=== PATIENT | male | born 1985 | race Two or more races ===

== ENCOUNTER 2017-01-13 20:41 | Emergency (ER) | payer MEDICAID ==
[~2017-01-13] VITALS: Ht 177.8 cm; Wt 122.5 kg
[2017-01-13] MEDS ORDERED: CARVEDILOL 6.25 MG TABLET ONE (21:12)
[2017-01-13] MEDS ORDERED: LISINOPRIL (20MG) 20 MG TABLET PO SCH (21:30)
[2017-01-13] MEDS ORDERED: CARVEDILOL 6.25 MG TABLET PO ONE (21:30)
[2017-01-13] MEDS ORDERED: LISINOPRIL (20MG) 20 MG TABLET ONE (21:40)
[2017-01-13 21:43] VITALS: BP 171/135
--- NOTE | 2017-01-13 21:44 | NUR ---
PATIENT REFUSED TO TAKE LISINOPRIL 20MG TAB. EDUCATED PATIENT TO RISK AND BENEFITS, PATIENT STILL REFUSED AND SAID, HE "CANT WAIT TO GO HOME." DISCHARGE INSTRUCTIONS GIVEN. PATIENT VERBALIZED UNDERSTANDING. AMBULATORY WITH STEADY GAIT. PATIENT HAS EXIT CARE AND PRESCRIPTION.
== END 2017-01-13 21:44 | disposition home or self-care (01) ==
LOC: ER 20:46
DX: Z76.0 Encounter for issue of repeat prescription (principal); I11.0 Hypertensive heart disease with heart failure; I50.9 Heart failure, unspecified; F17.200 Nicotine dependence, unspecified, uncomplicated
CPT/HCPCS: A4606; Z7610

== ENCOUNTER 2017-02-26 11:14 | Emergency (ER) | payer MEDICAID, OTHER ==
[~2017-02-26] VITALS: Ht 177.8 cm; Wt 122.5 kg
[2017-02-26 11:20] VITALS: BP 157/118
[2017-02-26] MEDS ORDERED: CARV12.52 PO (12:34)
[2017-02-26] MEDS ORDERED: FURO40TA5 PO (12:34)
[2017-02-26] MEDS ORDERED: LISI-603 PO (12:34)
[2017-02-26] MEDS ORDERED: CLINDAMYCIN 900 MG/6 ML VIAL ONE (12:49)
[2017-02-26] MEDS ORDERED: CLINDAMYCIN 900 MG/6 ML VIAL IM ONE (13:00)
== END 2017-02-26 13:07 | disposition home or self-care (01) ==
LOC: ER 11:22
DX: L03.116 Cellulitis of left lower limb (principal); I11.0 Hypertensive heart disease with heart failure; I50.9 Heart failure, unspecified
CPT/HCPCS: 96372; 99283; A4606; A6403; J3490; Z7610

== ENCOUNTER 2017-03-25 12:53 | Emergency (ER) | payer OTHER ==
[~2017-03-25] VITALS: Ht 177.8 cm; Wt 117.9 kg
[~2017-03-25 12:53] MED LIST: CARV12.52 PO; FURO40TA5 PO; LISI-603 PO
--- NOTE | 2017-03-25 12:55 | NUR ---
SENT BY PCP FOR HBP . PCP GAVE BP MEDS PT DOESNT KNOW NAME OF MEDS PT TAKES COREG 12.5 MG PO BID, LSINOPRIL 20 MG PO QD LASIX. DENIES CP /SOB, NAD NOTED, VSS, RESP EVEN AND UNLABORED, 0/10 PAIN, PT PUT ON HOSPITAL GOWN AND MONITOR. WAITING FOR MD LANG
[2017-03-25 13:32] VITALS: BP 142/92
== END 2017-03-25 14:12 | disposition home or self-care (01) ==
LOC: ER 12:55
DX: I11.0 Hypertensive heart disease with heart failure (principal); I50.9 Heart failure, unspecified; F17.200 Nicotine dependence, unspecified, uncomplicated
CPT/HCPCS: 99283; A4606; Z7610

== ENCOUNTER 2017-11-16 11:34 | Inpatient (IN) | payer OTHER ==
[~2017-11-16] VITALS: Ht 177.8 cm; Wt 142.9 kg
--- NOTE | 2017-11-16 11:40 | NUR ---
PRESENTS TO ER CO LEFT LEG SWELLING, REDNESS, BURNING X 2 DAYS. PATIENT IS A/OX 4, BREATHING EVEN AND UNLABORED. NO SOB, NAD, VITALS STABLE. SAFETY AND COMFORT MEASURES IN PLACE. AWAITING MD ORDERS.
--- NOTE | 2017-11-16 11:59 | NUR ---
PAGED DR. LEIF REDDY
[2017-11-16] MEDS ORDERED: CLINDAMYCIN 900 MG in IV D5W 100 ML IV ONE (12:00)
[2017-11-16] MEDS ORDERED: ACETAMINOPHEN ES 500 MG TABLET PO ONE (12:00)
--- NOTE | 2017-11-16 12:00 | NUR ---
NEW IV STARTED ON RFA, 20G. BLOOD DRAWN AND SENT TO LAB.
[2017-11-16] MEDS ORDERED: PIPERACILLIN /TAZOBACTAM 3.375 G in IV D5W 50 ML IV STA (12:03)
[2017-11-16] MEDS ORDERED: ACETAMINOPHEN ES 500 MG TABLET ONE (12:08)
[2017-11-16 12:09] LABS: BASOPHILS # (AUTO) 0.1 /CMM (0.0-0.2); BASOPHILS % (AUTO) 0.5 % (0.0-2.0); EOSINOPHILS % (AUTO) 0.3 % (0.0-6.0); HEMATOCRIT 41 % (39-51); HEMOGLOBIN 13.9 g/dL (13.5-17.5); LYMPHOCYTES # (AUTO) 0.7 /CMM (0.8-4.8); LYMPHOCYTES % (AUTO) 6.4 % (20.0-44.0); MEAN CORPUSCULAR HEMOGLOBIN 27 PG (26.0-33.0); MEAN CORPUSCULAR HGB CONC 34 g/dl (31.0-36.0); MEAN CORPUSCULAR VOLUME 81 fL (80-96); MONOCYTES # (AUTO) 0.6 /CMM (0.1-1.30); MONOCYTES % (AUTO) 5.4 % (2.0-12.0); NEUTROPHILS % (AUTO) 87.4 % (43.0-81.0); PLATELET COUNT (AUTO) 198 /CMM (150-450); RDW COEFFICIENT OF VARIATION 19.4 (11.5-15.0); RED BLOOD CELL COUNT(AUTO) 5.06 MIL/uL (4.5-6.0); WHITE BLOOD COUNT (AUTO) 11.4 K/uL (4.3-11.0)
--- NOTE | 2017-11-16 12:17 | NUR ---
REQUESTED MED SURG BED FROM NURSE SUP
[2017-11-16 12:18] LABS: CALCIUM, SERUM 8.2 mg/dL (8.5-10.1); CREATININE 1.6 mg/dL (0.6-1.3); POTASSIUM 3.6 mmol/L (3.5-5.1)
[2017-11-16 12:24] LABS: ALBUMIN 1.8 g/dL (3.4-5.0); BILIRUBIN,TOTAL 2.1 mg/dL (0.2-1.0); TOTAL PROTEIN, SERUM 6.6 g/dL (6.4-8.2)
[2017-11-16] MEDS ORDERED: VANCOMYCIN 2 GM in IV D5W 500 ML IV ONE (12:30)
[2017-11-16] MEDS ORDERED: DEXTROSE 50% IV ONE (12:30)
[2017-11-16] MEDS ORDERED: VANCOMYCIN IV ONE (12:30)
[2017-11-16] MEDS ORDERED: WATER IV ONE (12:30)
[2017-11-16] MEDS ORDERED: VANCOMYCIN 1 GM in IV D5W 250 ML IV ONE (12:30)
--- NOTE | 2017-11-16 12:32 | NUR ---
PAGED DR. LEIF REDDY - SECOND ATTEMPT
--- NOTE | 2017-11-16 13:00 | NUR ---
PAGED DR. LEIF REDDY - THIRD ATTEMPT
--- NOTE | 2017-11-16 13:15 | NUR ---
Tommie calvert in ED - 11/16/17 at 1325 by JULI JERILYN TORRES PANEL - AP NUTHALAPATY SUPERVISOR PIPELINE
[2017-11-16] MEDS ORDERED: IV NS 0.9% 1,000 ML BAG IV STA (13:20)
--- NOTE | 2017-11-16 13:25 | NUR ---
PAGED DR. HEART SHE IS COVERING FOR LEIF REDDY
--- NOTE | 2017-11-16 13:56 | NUR ---
REPORT GIVEN TO VAZQUEZ CHAVEZ FOR ELENA UPON ADMISSION.
--- NOTE | 2017-11-16 14:08 | NUR ---
patient transported to [facility] via stretcher. rncesario to provide disha.
[2017-11-16 14:30] VITALS: BP 101/65
--- NOTE | 2017-11-16 14:30 | NUR ---
RECEIVED PATIENT FROM ER VIA GURNEY. PATIENT IS A/OX4, ABLE TO MAKE NEEDS KNOWN. AMBULATORY. O2SAT 100% ROOM AIR. VS WNL. NO ACUTE DISTRESS, NO SOB NOTED. DENIED PAIN AND DISCOMFORT AT THE MOMENT. EDEMA ON BILATERAL LOWER EXTREMITIES; LEFT LOWER EXTREMITY FROM BELOW THE KNEE TO THE ANKLE CELLULITIS NOTED. PER PATIENT, HE HAS NO WOUNDS OR BRUISES ON OTHER PART OF THE BODY. BODY CHECK DONE, SKIN INTACT. IV SITE ON RIGHT FOREARM GAUGE 20, INTACT AND PATENT. KEPT PATIENT SAFE AND COMFORTABLE. BED IN LOW/LOCKED POSITION, SIDERAILS UPX2, SEMIFOWLERS, CALL LIGHT IN REACH. WILL CONTINUE TO MONITOR ACCORDINGLY.
--- NOTE | 2017-11-16 15:00 | NUR ---
DR REDDY ON BEDSIDE TALKING TO PATIENT. PER DR REDDY, CONTINUE HOME MEDICATIONS.
[2017-11-16] MEDS: ENOXAPARIN SODIUM 40 MG/0.4 ML DISP.SYRIN SQ SCH (17:52)
--- NOTE | 2017-11-16 19:30 | NUR ---
RN CLOSING NOTES PATIENT IN STABLE CONDITION. ALL NEEDS ATTENDED AND PROVIDED. KEPT PATIENT SAFE AND COMFORTABLE. BED IN LOW/LOCKED POSITION, SIDERAILS UPX2, CALL LIGHT IN REACH. ENDORSED TO NIGHT RN FOR ELENA.
[2017-11-16 20:00] VITALS: BP 113/69
[2017-11-16] MEDS: CEFAZOLIN 1 GM in IV NS 0.9% 50 ML IV SCH (20:59)
--- NOTE | 2017-11-16 21:42 | NUR ---
INITIAL ECHO FINDING SHOWED EF 30-35%~ WITH MODERATE PULM. HTN. INFORMED ATTENDING RN (MAE) AND CHARGE NURSE (BRIANDA) OF RESULTS.
[2017-11-17] MEDS: CEFAZOLIN 1 GM in IV NS 0.9% 50 ML IV SCH ×3 (05:13→21:05)
[2017-11-17 06:39] LABS: CALCIUM, SERUM 8.5 mg/dL (8.5-10.1); CREATININE 1.5 mg/dL (0.6-1.3); POTASSIUM 3.5 mmol/L (3.5-5.1)
--- NOTE | 2017-11-17 06:40 | NUR ---
MS RN NOTES AWAKE & RESPONSIVE. NOT IN ANY DISTRESS. NO SOB NOTED. DENIES ANY PAIN OR DISCOMFORT AT THIS TIME. WITH IV-HL PATENT & INTACT. MONITORED ACCORDINGLY. CALL LIGHT WITHIN REACH. BED IN LOWEST POSITION. SR UP X 2 FOR SAFETY. WILL ENDORSE TO NEXT SHIFT.
[2017-11-17 07:46] LABS: BASOPHILS % (AUTO) 0.6 % (0.0-2.0); EOSINOPHILS % (AUTO) 0.6 % (0.0-6.0); HEMATOCRIT 41 % (39-51); HEMOGLOBIN 14.2 g/dL (13.5-17.5); LYMPHOCYTES % (AUTO) 11.5 % (20.0-44.0); MEAN CORPUSCULAR HEMOGLOBIN 28 PG (26.0-33.0); MEAN CORPUSCULAR HGB CONC 35 g/dl (31.0-36.0); MEAN CORPUSCULAR VOLUME 82 fL (80-96); MONOCYTES # (AUTO) 0.9 /CMM (0.1-1.30); MONOCYTES % (AUTO) 10.7 % (2.0-12.0); NEUTROPHILS # (AUTO) 6.4 /CMM (1.8-8.9); NEUTROPHILS % (AUTO) 76.6 % (43.0-81.0); PLATELET COUNT (AUTO) 221 /CMM (150-450); RDW COEFFICIENT OF VARIATION 19.2 (11.5-15.0); RED BLOOD CELL COUNT(AUTO) 5.04 MIL/uL (4.5-6.0); WHITE BLOOD COUNT (AUTO) 8.3 K/uL (4.3-11.0)
--- NOTE | 2017-11-17 07:47 | NUR ---
MS RN OPENING NOTES RECEIVED PT FROM NIGHTSHIFT NURSE IN STABLE CONDITION. PT IS A/O X4. NO SOB OR SIGNS OF INFILTRATION NOTED. BREATHING IS EVEN AND UNLABORED. HE DENIES PAIN AT THIS TIME. IV TO RIGHT FOREARM NOTED TO BE PATENT AND INTACT. NO REDNESS OR SIGNS OF INFILTRATION NOTED. BED IN LOW LOCKED POSITION, SIDE RAILS UP X2, LEIDA LIGHT WITHIN REACH. WILL CONTINUE TO MONITOR.
[2017-11-17 08:00] VITALS: BP 129/85
[2017-11-17] MEDS: FUROSEMIDE 40 MG TABLET PO SCH (08:42)
[2017-11-17] MEDS: CARVEDILOL 12.5 MG TABLET PO SCH ×2 (08:42→17:00)
[2017-11-17] MEDS: LISINOPRIL (20MG) 20 MG TABLET PO SCH (08:42)
--- NOTE | 2017-11-17 10:11 | NUR ---
MS RN NOTES BEDSIDE REPORT GIVEN TO SCOTT PERES FOR ELENA
[2017-11-17 16:00] VITALS: BP 116/81
--- NOTE | 2017-11-17 17:19 | NUR ---
PER DR REDDY, NO BLOOD SUGAR CHECKS. ALSO PER HIS ORDERS, NO HEMOGLOBIN A1C TO BE DRAWN VERBAL READBACK DONE
--- NOTE | 2017-11-17 19:45 | NUR ---
MS RN NOTES RECEIVED ON BED A/O X4,BREATHING REGULAR,,DENIES DISCOMFORTS AT THE MOMENT.SALINE LOCK INTACT AND PATENT.LEFT LEG REMAINS REDDISH AND SLIGHTLY SWOLLEN.WILL CONTINUE TO MONITOR.
[2017-11-17 20:00] VITALS: BP 132/75
[2017-11-17] MEDS: ENOXAPARIN SODIUM 40 MG/0.4 ML DISP.SYRIN SQ SCH (21:06)
[2017-11-18] MEDS: CEFAZOLIN 1 GM in IV NS 0.9% 50 ML IV SCH ×2 (04:54→12:04)
--- NOTE | 2017-11-18 06:37 | NUR ---
MS RN NOTES IV ABX TOLERATED WELL.
--- NOTE | 2017-11-18 06:38 | NUR ---
MS RN NOTES FAIRLY RESTED AT [facility].NO COMPLAINTS OF PAIN.SALINE LOCK REMAINS PATENT.IN NO ACUTE DISTRESS.WILL ENDORSE TO DAY NURSE FOR ELENA.
--- NOTE | 2017-11-18 07:22 | NUR ---
MS RN OPENING NOTES PATIENT RECEIVED IN BED AWAKE AND IN NO ACUTE SIGNS OF DISTRESS. A/O X 4. ABLE TO VERBALIZED NEEDS, DENIES ANY PAIN OR DISCOMFORTS AT THIS TIME. LLE REMAINS SWOLLEN, RED AND WARM TO TOUCH. IV ACCESS ON RFA INTACT AND PATENT, FLUSHES EASILY. SAFETY MEASURES IN PLACE. BED IN LOWEST/LOCKED POSITION WITH SIDE-RAILS UP X 2. CALL E[place]INAS WITHIN REACH. WILL CONTINUE TO MONITOR PT ACCORDINGLY.
[2017-11-18 08:00] VITALS: BP 145/108
[2017-11-18] MEDS: FUROSEMIDE 40 MG TABLET PO SCH (08:14)
[2017-11-18] MEDS: LISINOPRIL (20MG) 20 MG TABLET PO SCH (08:14)
[2017-11-18] MEDS: CARVEDILOL 12.5 MG TABLET PO SCH ×2 (08:15→17:17)
[2017-11-18 16:00] VITALS: BP 120/73
[2017-11-18 17:17] VITALS: BP 120/73
--- NOTE | 2017-11-18 18:07 | NUR ---
RN DISCHARGED NOTES PATIENT DISCHARGED HOME IN STABLE CONDITION. A/O X 4, SAME VERBALLY RESPONSIVE WITH NO C/O PAIN THROUGHOUT THE DAY. V/S TAKEN AND RECORDED. PHOTOS OF HIS CELLULITIS ON LEFT LOWER LEG TAKEN AND FILED ON CHART. BELONGINGS CHECKED, COUNTED AND SIGNED FORM. RECEIVED CALL FROM DR REDDY OFFICE THAT ALL MEDS WERE FAXED ALREADY TO [facility], [facility], PATIENT CALLED AND VERIFIED [facility] IF [facility]EF[facility] IS ONE OF THEM AND IT WAS. HEALTH TEACHINGS/DISCHARGED INSTRUCTIONS GIVEN TO PT AND VERBALIZED UNDERSTANDING. PT LEFT UNIT AT 1755 AMBULATORY IN STEADY GAIT ACCOMPANIED BY HIS FATHER MILDRED. AND CHARGE NURSE AWARE OF DISCHARGE. .
== END 2017-11-18 18:00 | disposition home or self-care (01) | DRG 383 ==
LOC: ER 11:35 → MED 13:45
PROVIDERS: ADMIT Internal Medicine; ATTEND Internal Medicine
DX: L03.116 Cellulitis of left lower limb (principal); N17.9 Acute kidney failure, unspecified; I11.0 Hypertensive heart disease with heart failure; I50.32 Chronic diastolic (congestive) heart failure; Z68.42 Body mass index [BMI] 45.0-49.9, adult; B95.5 Unspecified streptococcus as the cause of diseases classified elsewhere; E11.9 Type 2 diabetes mellitus without complications; Z87.891 Personal history of nicotine dependence; Z82.49 Family history of ischemic heart disease and other diseases of the circulatory system; E66.9 Obesity, unspecified; Z79.899 Other long term (current) drug therapy
CPT/HCPCS: 36415; 71045-TC; 80048-TC; 80053-TC; 83605-TC; 83880; 85025-TC; 87040-TC; 87081-TC; 93307-TC; 93971-TC; A4216; A4606; J0690; J1650; J2543; J3370; J3490; J7030; J7040; J7060; Z7610

== ENCOUNTER 2018-06-18 13:48 | Emergency (ER) | payer OTHER ==
[~2018-06-18] VITALS: Ht 177.8 cm; Wt 122.5 kg
--- NOTE | 2018-06-18 14:54 | NUR ---
requesting rx refill for lasix and antibiotic for leg swelling x 1 week. PT AAOX4, VSS. DENIES CP, SOB, DIZZINESS, N/V/D, WEAKNESS @ THIS TIME. PT SEEN & EVAL'D BY NAOMY HANKINS. PAPER BAG MACHINE OPERATOR @ BS FOR EVAL OF CLYDE LOWER EXT & WILL CONT TO MONITOR.
[2018-06-18 14:56] LABS: BASOPHILS # (AUTO) 0.1 /CMM (0.0-0.2); BASOPHILS % (AUTO) 1.6 % (0.0-2.0); HEMATOCRIT 48 % (39-51); HEMOGLOBIN 15.8 g/dL (13.5-17.5); LYMPHOCYTES # (AUTO) 0.6 /CMM (0.8-4.8); LYMPHOCYTES % (AUTO) 9.5 % (20.0-44.0); MEAN CORPUSCULAR HGB CONC 33 g/dl (31.0-36.0); MEAN CORPUSCULAR VOLUME 84 fL (80-96); MONOCYTES # (AUTO) 0.5 /CMM (0.1-1.30); MONOCYTES % (AUTO) 8.3 % (2.0-12.0); NEUTROPHILS # (AUTO) 4.3 /CMM (1.8-8.9); NEUTROPHILS % (AUTO) 71.6 % (43.0-81.0); PLATELET COUNT (AUTO) 419 /CMM (150-450)
[2018-06-18 15:25] LABS: CALCIUM, SERUM 8.1 mg/dL (8.5-10.1); CREATININE 1.4 mg/dL (0.6-1.3); POTASSIUM 3.5 mmol/L (3.5-5.1)
--- NOTE | 2018-06-18 17:01 | NUR ---
Patient discharged to home in stable condition. Written and verbal after care instructions given. Patient verbalizes understanding of instruction. IV removed. Catheter intact and site benign. Pressure and 4x4 applied to site. No bleeding noted.
[2018-06-18 17:02] VITALS: BP 154/112
--- NOTE | 2018-06-18 17:03 | NUR ---
INSTRUCTED TO TAKE HIS BP MEDS AMY WHEN HE GETS HOME PER NAOMY HANKINS'S ORDER. PT ACKNOWLEDGED WITH VERBAL UNDERSTANDING.
== END 2018-06-18 17:04 | disposition home or self-care (01) ==
LOC: ER 13:55
DX: R60.0 Localized edema (principal); I11.0 Hypertensive heart disease with heart failure; I50.9 Heart failure, unspecified; E66.9 Obesity, unspecified; F17.200 Nicotine dependence, unspecified, uncomplicated; Z68.38 Body mass index [BMI] 38.0-38.9, adult; Z79.899 Other long term (current) drug therapy
CPT/HCPCS: 36415; 71045-TC; 80048-TC; 85025-TC; 93970-TC